=== PATIENT | male | born 1995 | race African-American/Black ===

== ENCOUNTER 2018-06-26 17:03 | Emergency (ER) | payer BC ==
[2018-06-26] MEDS ORDERED: KETAMINE HCL 500 MG/5 ML VIAL ONE (17:53)
[2018-06-26] MEDS ORDERED: NA CHLORIDE 0.9% 1,000 ML ONE (17:53)
--- NOTE | 2018-06-26 18:41 | ER ---
Nurse's Notes [facility] Name: Kolby Cotton Jr Age: 23 yrs Sex: Male : 1995 Arrival Date: 06/26/2018 Time: 17:08 Bed 4 Private MD: Diagnosis: Anterior dislocation of right humerus Presentation: 06/26 17:11 Presenting complaint: Patient states: i dislocated my R shoulder from sleeping on that hj side; denies trauma to the area; [facility], XRAY done, was told pt had R shoulder dislocation and was told to come here for further eval and treatment; pain is 6/10;. Transition of care: patient was not received from another setting of care. Onset of symptoms was June 26, 2018. Risk Assessment: Do you want to hurt yourself or someone else? Patient reports no desire to harm self or others. Initial Sepsis Screen: Does the patient meet any 2 criteria? No. Patient's initial sepsis screen is negative. Does the patient have a suspected source of infection? No. Patient's initial sepsis screen is negative. Care prior to arrival: None. 17:11 Method Of Arrival: Ambulatory 17:11 Acuity: ALIS 3 hj Historical: - Allergies: 17:15 No Known Allergies; - Home Meds: 17:15 Keppra 500 mg Oral tab 1 tab nightly [Active]; hj - PMHx: 17:15 Seizures; hj - PSHx: 17:15 abdominal surgery; hj - Immunization history:: Adult Immunizations up to date. - Social history:: Patient/guardian denies using alcohol, street drugs, The patient lives with family, Smoking status: Patient/guardian denies using tobacco. - Family history:: not pertinent. - Ebola Screening: : Patient denies exposure to infectious person Patient denies travel to an Ebola-affected area in the 21 days before illness onset. Screenin:56 Abuse screen: Denies threats or abuse. Denies injuries from another. Nutritional ss screening: No deficits noted. Tuberculosis screening: Never had TB. Fall Risk None identified. Assessment: 17:17 General: Appears in no apparent distress. comfortable, Behavior is cooperative, ss anxious, Denies fever, feeling ill, fatigue, chills. Pain: Complains of pain in R shoulder/ scapula Pain currently is 6 out of 10 on a pain scale. Quality of pain is described as aching, tender, Pain began 1.5 weeks ago. Pt reports he was sleeping and when he woke up he felt pain in his arm. Is continuous. Neuro: Level of Consciousness is awake, alert, obeys commands, Oriented to person, place, time, situation, Speech is normal, Facial symmetry appears normal, Pupils are PERRLA, Intact. Cardiovascular: Pulses are palpable in right radial artery and left radial artery. Respiratory: Airway is patent Respiratory effort is even, unlabored, Respiratory pattern is regular, symmetrical, Breath sounds are clear bilaterally. GI: Patient currently denies diarrhea, nausea, vomiting. : No signs and/or symptoms were reported regarding the genitourinary system. EENT: Oral mucosa is moist. Throat is clear. Derm: Skin is intact, is healthy with good turgor, Skin is dry, Skin is pink, warm \T\ dry. normal. Musculoskeletal: Circulation, motion, and sensation intact. Range of motion: limited in right shoulder Swelling absent. 17:55 Reassessment: all monitors applied to patient. Pt has signed informed consent. Dr. inés Childs notified. Pt voices anxiety, but has been given verbal reassurance. 19:08 Reassessment: Patient appears in no apparent distress at this time. Patient and/or ss family updated on plan of care and expected duration. Pain level reassessed. Patient is alert, oriented x 3, equal unlabored respirations, skin warm/dry/pink. Reassessment: Pt tolerated procedure well. Is awake and alert at this time with minimal discomfort. Shoulder immobilizer in place. Mother at bedside. Awaiting for radiology report to come through. Neuro: Level of Consciousness is awake, alert, obeys commands, Oriented to person, place, time, situation, Speech is normal. Respiratory: Respiratory effort is even, unlabored. Vital Signs: 17:15 BP 142 / 87; Pulse 93; Resp 18; Temp 98.9(TE); Pulse Ox 96% on R/A; Weight 52.16 kg; hj Height 5 ft. 3 in. (160.02 cm); Pain 6/10; 18:22 BP 141 / 97; Pulse 120; Resp 16; Pulse Ox 100% on 2 lpm NC; ss 18:34 BP 153 / 67; Pulse 93; Resp 16; Pulse Ox 100% on R/A; ss 17:15 Body Mass Index 20.37 (52.16 kg, 160.02 cm) ED Course: 17:08 Patient arrived in ED. mr 17:13 Triage completed. hj 17:16 Arm band placed on left wrist. hj 17:18 Tosin Childs MD is Attending Physician. ma2 17:40 Inserted saline lock: 18 gauge in left antecubital area, using aseptic technique. ds4 17:48 Anna Cai, RN is Primary Nurse. ss 17:56 Patient has correct armband on for positive identification. Placed in gown. Bed in low ss position. Call light in reach. Side rails up X2. nuclear monitoring technician on. Pulse ox on. NIBP on. Warm blanket given. Consent for conscious sedation explained by staff, explained by physician, signed by patient. 17:56 Oxygen administration via nasal cannula \T\ 2L/min. ss 18:37 Shoulder 1 View In Process Unspecified. EDIN 18:39 Kt Haywood MD is Referral Physician. ma2 19:15 No provider procedures requiring assistance completed. IV discontinued, intact, ss bleeding controlled, No redness/swelling at site. Pressure dressing applied. Administered Medications: 18:19 Drug: NS 0.9% 500 ml {Note: given during conscious sedation.} Route: IV; Rate: bolus; ss Site: left antecubital; 18:53 Follow up: IV Status: Completed infusion ss 18:20 Drug: Ketamine 1 mg/kg {Note: 52 mg administered.} Route: IVP; Site: left antecubital; ss 18:51 Follow up: Response: Patient is sedated ss 18:23 Drug: Ketamine 1 mg/kg {Note: 52 mg given .} Route: IVP; Site: left antecubital; ss 18:26 Follow up: Response: No adverse reaction; Patient is sedated ss Outcome: 18:40 Discharge ordered by . ma2 19:15 Discharged to home ambulatory, with family. ss 19:15 Condition: good 19:15 Discharge instructions given to patient, family, Instructed on discharge instructions, follow up and referral plans. medication usage, Demonstrated understanding of instructions, follow-up care, medications, Prescriptions given X 1. 19:16 Patient left the ED. ss Signatures: Dispatcher [facility] Virgie Ladd mr Anna Cai, SHAWNA RN ss Derek Miles ds4 Lamberto Gonzáles RN RN Tosin Childs MD MD ma2 Corrections: (The following items were deleted from the chart) 19:14 19:08 BP 141 / 97; Pulse 120bpm; Resp 16bpm; Pulse Ox 100% 2 lpm Nasal Cannula; [facility]
--- NOTE | 2018-06-26 18:41 | EDPHYS ---
Physician Documentation [facility] Name: Kolby Cotton Jr Age: 23 yrs Sex: Male : 1995 Arrival Date: 06/26/2018 Time: 17:08 Bed 4 Private MD: ED Physician Tosin Childs HPI: 06/26 18:36 This 23 yrs old Black Male presents to ER via Ambulatory with complaints of Shoulder ma2 Injury. 18:36 The patient or guardian complains of decreased range of motion. Onset: The ma2 symptoms/episode began/occurred suddenly, 10 day(s) ago. Associated signs and symptoms: Pertinent negatives: diaphoresis, neck pain, tingling. Severity of symptoms: At their worst the symptoms were moderate, in the emergency department the symptoms are unchanged. The patient has not experienced similar symptoms in the past. send from clinic for ant shoulder dislocation, he has his shoulder dislocated for 10 days . Historical: - Allergies: 17:15 No Known Allergies; hj - Home Meds: 17:15 Keppra 500 mg Oral tab 1 tab nightly [Active]; hj - PMHx: 17:15 Seizures; hj - PSHx: 17:15 abdominal surgery; hj - Immunization history:: Adult Immunizations up to date. - Social history:: Patient/guardian denies using alcohol, street drugs, The patient lives with family, Smoking status: Patient/guardian denies using tobacco. - Family history:: not pertinent. - Ebola Screening: : Patient denies exposure to infectious person Patient denies travel to an Ebola-affected area in the 21 days before illness onset. ROS: 18:36 Constitutional: Negative for fever, chills, and weight loss. ma2 18:36 MS/extremity: Positive for decreased range of motion, pain, Negative for paresthesias, swelling, tenderness, tingling, warmth. 18:36 All other systems are negative. Exam: 18:36 Constitutional: This is a well developed, well nourished patient who is awake, alert, ma2 and in no acute distress. Head/Face: Normocephalic, atraumatic. Chest/axilla: Normal chest wall appearance and motion. Nontender with no deformity. No lesions are appreciated. Cardiovascular: Regular rate and rhythm with a normal S1 and S2. No gallops, murmurs, or rubs. Normal PMI, no JVD. No pulse deficits. Respiratory: Lungs have equal breath sounds bilaterally, clear to auscultation and percussion. No rales, rhonchi or wheezes noted. No increased work of breathing, no retractions or nasal flaring. Abdomen/GI: Soft, non-tender, with normal bowel sounds. No distension or tympany. No guarding or rebound. No evidence of tenderness throughout. Back: No spinal tenderness. No costovertebral tenderness. Full range of motion. Skin: Warm, dry with normal turgor. Normal color with no rashes, no lesions, and no evidence of cellulitis. Neuro: Awake and alert, GCS 15, oriented to person, place, time, and situation. Cranial nerves II-XII grossly intact. Motor strength 5/5 in all extremities. Sensory grossly intact. Cerebellar exam normal. Normal gait. 18:36 Musculoskeletal/extremity: ROM: limited passive range of motion, anterior shoulder dislocation, neurovascular intact . Vital Signs: 17:15 BP 142 / 87; Pulse 93; Resp 18; Temp 98.9(TE); Pulse Ox 96% on R/A; Weight 52.16 kg; hj Height 5 ft. 3 in. (160.02 cm); Pain 6/10; 18:22 BP 141 / 97; Pulse 120; Resp 16; Pulse Ox 100% on 2 lpm NC; ss 18:34 BP 153 / 67; Pulse 93; Resp 16; Pulse Ox 100% on R/A; ss 17:15 Body Mass Index 20.37 (52.16 kg, 160.02 cm) Procedures: 18:36 Reduction: of the right shoulder, using traction, manipulation, Immobilized with sling, ma2 Patient tolerated well. Post reduction film - reveals normal alignment. Moderate sedation: Pre-procedure assessment: ASA physical classification: I - healthy, no underlying organic disease, Airway assessment: able to hyperextend neck, Mallampati classification of tongue size: I - faucial pillars, soft palate, and uvula can be fully visualized, Monitoring during procedure: nuclear monitoring technician, continuous pulse oximetry, Medications employed: Ketamine, Post-procedure assessment: the patient is moderately sedated, Respiratory status: even and unlabored. MDM: 17:18 Patient medically screened. ma2 18:36 Differential diagnosis: Anterior dislocation with fracture, Anterior dislocation ma2 without fracture, Posterior dislocation with fracture, Posterior dislocation without fracture, humeral head fracture, glenoid fracture, tendonitis. Data reviewed: vital signs, nurses notes. Counseling: I had a detailed discussion with the patient and/or guardian regarding: the historical points, exam findings, and any diagnostic results supporting the discharge/admit diagnosis, the presence of at least one elevated blood pressure reading (>120/80) during this emergency department visit, the need for outpatient follow up. Response to treatment: the patient's symptoms have resolved after treatment. 06/26 18:36 Order name: Shoulder 1 View; Complete Time: 19:12 EDMS Administered Medications: 18:19 Drug: NS 0.9% 500 ml {Note: given during conscious sedation.} Route: IV; Rate: bolus; ss Site: left antecubital; 18:53 Follow up: IV Status: Completed infusion 18:20 Drug: Ketamine 1 mg/kg {Note: 52 mg administered.} Route: IVP; Site: left antecubital; 18:51 Follow up: Response: Patient is sedated 18:23 Drug: Ketamine 1 mg/kg {Note: 52 mg given .} Route: IVP; Site: left antecubital; 18:26 Follow up: Response: No adverse reaction; Patient is sedated Disposition: 06/26/18 18:40 Discharged to Home. Impression: Anterior dislocation of right humerus. - Condition is Stable. - Prescriptions for Tylenol- Codeine #3 300-30 mg Oral Tablet - take 2 tablet by ORAL route every 6 hours As needed; 30 tablet. - Medication Reconciliation Form, Thank You Letter, Antibiotic Education, Prescription Opioid Use form. - Follow up: Private Physician; When: Tomorrow; Reason: Continuance of care. Follow up: Kt Haywood MD; When: Tomorrow; Reason: Continuance of care. - Notes: follow up with bone doctor on friday Signatures: Dispatcher [employer] EDAnna Barker RN RN Lamberto Gonzáles RN RN Tosin Childs MD MD ma2 Corrections: (The following items were deleted from the chart) 18:36 17:19 Shoulder Right 2 View+RAD.RAD.BRZ ordered. EDMS EDMS 19:16 18:40 06/26/2018 18:40 Discharged to Home. Impression: Anterior dislocation of right ss humerus. Condition is Stable. Forms are Medication Reconciliation Form, Thank You Letter, Antibiotic Education, Prescription Opioid Use. Follow up: Private Physician; When: Tomorrow; Reason: Continuance of care. Follow up: Kt Haywood; When: Tomorrow; Reason: Continuance of care. ma2
--- NOTE | 2018-06-26 19:07 | RAD REPORT ---
EXAM DESCRIPTION: RAD - Shoulder 1 View - 06/26/2018 6:38 pm CLINICAL HISTORY: Shoulder pain FINDINGS: Frontal view of the right shoulder was obtained. There appears to be an anterior dislocati on present. It is uncertain however this is secondary to positioning or a true dislocation. Axillary and scapular views of the right shoulder recommended for further evaluation No acute fracture is seen
== END 2018-06-26 19:16 | disposition home or self-care (01) ==
LOC: ER 17:03
DX: S43.014A Anterior dislocation of right humerus, initial encounter (principal); X58.XXXA Exposure to other specified factors, initial encounter
CPT/HCPCS: 73020; 96361; 96374; 99285; J7030

== ENCOUNTER 2018-08-10 15:20 | Emergency (ER) | payer BC ==
--- OUTSIDE RECORDS SUMMARY | 2018-08-10 15:22 | XMS REPORT ---
:1995 [facility] Address [address] [place] [id number] Care Team Providers Name Role Phone Unavailable Unavailable Unavailable Problems This patient has no known problems. Allergies, Adverse Reactions, Alerts This patient has no known allergies or adverse reactions. Medications This patient has no known medications.
--- NOTE | 2018-08-10 16:47 | RAD REPORT ---
EXAM DESCRIPTION: RAD - Shoulder Left 2 View - 08/10/2018 4:40 pm CLINICAL HISTORY: Left shoulder pain FINDINGS: No fracture. Anterior dislocation involves humeral head
[2018-08-10] MEDS ORDERED: PROPOFOL 0 MG/0 ML VIAL IV ONE (17:58)
[2018-08-10] MEDS ORDERED: FENTANYL CITR 100 MCG/2 ML ONE (17:58)
[2018-08-10] MEDS ORDERED: PROPOFOL 200 MG/20 ML VIAL IV ONE (17:59)
[2018-08-10] MEDS ORDERED: NA CHLORIDE 0.9% 1,000 ML ONE (18:14)
--- NOTE | 2018-08-10 18:28 | ER ---
Nurse's Notes 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 Transition of care: patient was not received from another setting of care. Onset of symptoms was August 10, 2018. Risk Assessment: Do you want to hurt yourself or someone else? Patient reports no desire to harm self or others. Initial Sepsis Screen: Does the patient meet any 2 criteria? No. Patient's initial sepsis screen is negative. Does the patient have a suspected source of infection? No. Patient's initial sepsis screen is negative. Care prior to arrival: None. 15:29 Method Of Arrival: Ambulatory aj 15:29 Acuity: ALIS 3 aj Triage Assessment: 15:30 General: Appears in no apparent distress. comfortable, Behavior is calm, cooperative, aj appropriate for age. Pain: Complains of pain in anterior aspect of left shoulder. Neuro: Level of Consciousness is awake, alert, obeys commands, Oriented to person, place, time, situation, Appropriate for age. Respiratory: Airway is patent Respiratory effort is even, unlabored, Respiratory pattern is regular, symmetrical. Derm: Skin is intact, is healthy with good turgor, Skin is pink, warm \T\ dry. normal. Musculoskeletal: Reports pain in anterior aspect of left shoulder. Injury Description: Deformity sustained to anterior aspect of left shoulder. Historical: - Allergies: 15:30 No Known Allergies; aj - Home Meds: 15:37 Keppra 500 mg Oral tab 1 tab nightly [Active]; hj - PMHx: 15:37 Seizures; hj - PSHx: 15:37 abdominal surgery; hj - Immunization history:: Adult Immunizations up to date. - Social history:: Smoking status: Patient/guardian denies using tobacco, Patient/guardian denies using alcohol. - Ebola Screening: : Patient negative for fever greater than or equal to 101.5 degrees Fahrenheit, and additional compatible Ebola Virus Disease symptoms Patient denies exposure to infectious person Patient denies travel to an Ebola-affected area in the 21 days before illness onset. Screenin:36 Abuse screen: Denies threats or abuse. Denies injuries from another. Nutritional hj screening: No deficits noted. Tuberculosis screening: No symptoms or risk factors identified. Fall Risk None identified. Assessment: 15:37 General: Appears in no apparent distress. uncomfortable, Behavior is calm, cooperative, hj appropriate for age. Pain: Complains of pain in left arm and anterior aspect of left shoulder. Neuro: Level of Consciousness is awake, alert, obeys commands, Oriented to person, place, time, situation, Appropriate for age. Cardiovascular: Capillary refill < 3 seconds Patient's skin is warm and dry. Respiratory: Airway is patent Respiratory effort is even, unlabored, Respiratory pattern is regular, symmetrical. GI: No signs and/or symptoms were reported involving the gastrointestinal system. : No signs and/or symptoms were reported regarding the genitourinary system. EENT: No signs and/or symptoms were reported regarding the EENT system. Derm: No signs and/or symptoms reported regarding the dermatologic system. Musculoskeletal: Reports pain in left arm and anterior aspect of left shoulder. 16:30 Reassessment: Patient and/or family updated on plan of care and expected duration. Pain hj level reassessed. Patient is alert, oriented x 3, equal unlabored respirations, skin warm/dry/pink. awaiting XRAY result;. 17:30 Reassessment: Patient and/or family updated on plan of care and expected duration. Pain hj level reassessed. Patient is alert, oriented x 3, equal unlabored respirations, skin warm/dry/pink. for closed reduction of L shoulder dislocation;. 18:03 Reassessment: Patient and/or family updated on plan of care and expected duration. Pain hj level reassessed. Patient is alert, oriented x 3, equal unlabored respirations, skin warm/dry/pink. with provider and crop and soil technician in room for closed reduction procedure; pt prep and equipment in place; Time off done;. 18:03 Reassessment: documentation in paper;attached to chart;. hj Vital Signs: 15:30 BP 143 / 75; Pulse 76; Resp 16; Temp 97.8; Pulse Ox 98% on R/A; Weight 52.16 kg; Height aj 5 ft. 3 in. (160.02 cm); 18:57 BP 129 / 81; Pulse 75; Resp 18; Pulse Ox 100% on R/A; hj 15:30 Body Mass Index 20.37 (52.16 kg, 160.02 cm) ED Course: 15:22 Patient arrived in ED. tw3 15:30 Triage completed. aj 15:30 Arm band placed on right wrist. aj 15:32 Kyler Chao MD is Attending Physician. ps1 15:36 Lamberto Gonzáles RN is Primary Nurse. hj 15:36 Patient has correct armband on for positive identification. Placed in gown. Bed in low hj position. Call light in reach. Side rails up X 1. 16:43 Shoulder Left (2 View) XRAY In Process Unspecified. EDMS 17:45 Inserted saline lock: 22 gauge in right antecubital area, using aseptic technique. IV hj discontinued, intact, bleeding controlled, No redness/swelling at site. Pressure dressing applied. 18:03 Assist provider with reduction of left shoulder using manipulation, Set up for hj procedure. Performed by Lamberto Gonzáles RN Immobilized with shoulder immobilizer Patient tolerated well. 18:21 Shoulder 1 View In Process Unspecified. EDMS 18:26 Fermin Nair MD is Referral Physician. ps1 Administered Medications: 18:03 Drug: Propofol 70 mg Route: IVP; Site: right antecubital; hj 18:29 Follow up: Response: No adverse reaction hj 18:05 Drug: fentaNYL (PF) 100 mcg Route: IVP; Site: right antecubital; hj 18:29 Follow up: Response: No adverse reaction; Pain is decreased hj Outcome: 18:27 Discharge ordered by . ps1 18:56 Discharged to home ambulatory, with family. hj 18:56 Condition: stable 18:56 Discharge instructions given to patient, family, Instructed on discharge instructions, follow up and referral plans. Demonstrated understanding of instructions, follow-up care, L shoulder immobilizer care; 18:57 Patient left the ED. hj Signatures: Dispatcher [employer] EDMS Meg Cooper RN RN aj Joaquin, Henry, SHAWNA Posey, Tia tw3 Kyler Chao MD MD ps1
--- NOTE | 2018-08-10 18:29 | EDPHYS ---
Physician Documentation [facility] Name: Kolby Cotton Jr Age: 23 yrs Sex: Male : 1995 Arrival Date: 08/10/2018 Time: 15:22 Bed 15 Private MD: ED Physician Kyler Chao HPI: 08/10 18:21 This 23 yrs old Black Male presents to ER via Ambulatory with complaints of Shoulder ps1 Injury. 18:21 patient has a history of multiple dislocations of shoulder.Today has left anterior ps1 dislocation with closing a door at home. Atraumatic. Pain rated as moderate. Drop off of left shoulder. Guarding. . Historical: - Allergies: 15:30 No Known Allergies; aj - Home Meds: 15:37 Keppra 500 mg Oral tab 1 tab nightly [Active]; hj - PMHx: 15:37 Seizures; hj - PSHx: 15:37 abdominal surgery; hj - Immunization history:: Adult Immunizations up to date. - Social history:: Smoking status: Patient/guardian denies using tobacco, Patient/guardian denies using alcohol. - Ebola Screening: : Patient negative for fever greater than or equal to 101.5 degrees Fahrenheit, and additional compatible Ebola Virus Disease symptoms Patient denies exposure to infectious person Patient denies travel to an Ebola-affected area in the 21 days before illness onset. ROS: 18:21 Constitutional: Negative for fever, chills, and weight loss, Eyes: Negative for injury, ps1 pain, redness, and discharge, Cardiovascular: Negative for chest pain, palpitations, and edema, Respiratory: Negative for shortness of breath, cough, wheezing, and pleuritic chest pain, Abdomen/GI: Negative for abdominal pain, nausea, vomiting, diarrhea, and constipation, Skin: Negative for injury, rash, and discoloration, Neuro: Negative for headache, weakness, numbness, tingling, and seizure. 18:21 MS/extremity: Positive for decreased range of motion, deformity, of the anterior aspect of left shoulder. Exam: 18:21 Constitutional: This is a well developed, well nourished patient who is awake, alert, ps1 and in no acute distress. Head/Face: Normocephalic, atraumatic. Eyes: Pupils equal round and reactive to light, extra-ocular motions intact. Lids and lashes normal. Conjunctiva and sclera are non-icteric and not injected. Chest/axilla: Normal chest wall appearance and motion. Nontender with no deformity. No lesions are appreciated. Cardiovascular: Regular rate and rhythm. No gallops, murmurs, or rubs. Normal PMI, no JVD. No pulse deficits. Respiratory: Lungs have equal breath sounds bilaterally, clear to auscultation and percussion. No rales, rhonchi or wheezes noted. No increased work of breathing, no retractions or nasal flaring. Abdomen/GI: Soft, non-tender, with normal bowel sounds. No distension or tympany. No guarding or rebound. No evidence of tenderness throughout. Neuro: Awake and alert, GCS 15, oriented to person, place, time, and situation. Cranial nerves II-XII grossly intact. Sensory grossly intact. Psych: Awake, alert, with orientation to person, place and time. Behavior, mood, and affect are within normal limits. 18:21 Musculoskeletal/extremity: Extremities: grossly normal except: noted in the anterior aspect of left shoulder: decreased ROM, dislocation. Vital Signs: 15:30 BP 143 / 75; Pulse 76; Resp 16; Temp 97.8; Pulse Ox 98% on R/A; Weight 52.16 kg; Height aj 5 ft. 3 in. (160.02 cm); 18:57 BP 129 / 81; Pulse 75; Resp 18; Pulse Ox 100% on R/A; hj 15:30 Body Mass Index 20.37 (52.16 kg, 160.02 cm) aj Procedures: 18:21 Reduction: of the anterior aspect of left shoulder, using traction, manipulation, ps1 supination, Immobilized with shoulder immobilizer. Patient tolerated well. Post reduction film - reveals normal alignment. Moderate sedation: Pre-procedure assessment: ASA physical classification: I - healthy, no underlying organic disease, Airway assessment: able to hyperextend neck, able to maintain airway, can open mouth without difficulty, Mallampati classification of tongue size: III - uvula can be visualized, but faucial pillars and soft palate are not appreciated. MDM: 16:18 Patient medically screened. ps1 18:21 Data reviewed: vital signs, nurses notes, and as a result, I will discharge patient. ps1 Counseling: I had a detailed discussion with the patient and/or guardian regarding: the historical points, exam findings, and any diagnostic results supporting the discharge/admit diagnosis, radiology results, the need for outpatient follow up, for definitive care, a orthopedic surgeon, to return to the emergency department if symptoms worsen or persist or if there are any questions or concerns that arise at home. 08/10 16:18 Order name: Shoulder Left (2 View) XRAY; Complete Time: 17:18 ps1 08/10 18:17 Order name: Shoulder 1 View; Complete Time: 18:56 EDMS Administered Medications: 18:03 Drug: Propofol 70 mg Route: IVP; Site: right antecubital; hj 18:29 Follow up: Response: No adverse reaction hj 18:05 Drug: fentaNYL (PF) 100 mcg Route: IVP; Site: right antecubital; hj 18:29 Follow up: Response: No adverse reaction; Pain is decreased Disposition: 08/10/18 18:27 Discharged to Home. Impression: Anterior dislocation of left humerus. - Condition is Stable. - Discharge Instructions: Shoulder Dislocation. - Medication Reconciliation Form, Thank You Letter, Antibiotic Education, Prescription Opioid Use form. - Follow up: Fermin Nair MD; When: 1 week; Reason: Worsening of condition, Further diagnostic work-up, Continuance of care. Follow up: Emergency Department; When: As needed; Reason: Worsening of condition. - Problem is an acute exacerbation. - Symptoms are unchanged. Signatures: Dispatcher [employer] [facility] Meg Cooper RN RN aj Joaquin, Henry, RN RN hj Singer, Phillip, MD MD ps1 Corrections: (The following items were deleted from the chart) 18:17 18:10 Shoulder Left 2 View+RAD.RAD.BRZ ordered. [facility] 18:57 18:27 08/10/2018 18:27 Discharged to Home. Impression: Anterior dislocation of left hj humerus. Condition is Stable. Forms are Medication Reconciliation Form, Thank You Letter, Antibiotic Education, Prescription Opioid Use. Follow up: Fermin Nair; When: 1 week; Reason: Worsening of condition, Further diagnostic work-up, Continuance of care. Follow up: Emergency Department; When: As needed; Reason: Worsening of condition. Problem is an acute exacerbation. Symptoms are unchanged. ps1
--- NOTE | 2018-08-10 18:35 | RAD REPORT ---
EXAM DESCRIPTION: RAD - Shoulder 1 View - 08/10/2018 6:19 pm CLINICAL HISTORY: Right shoulder dislocation FINDINGS: Frontal view of the right shoulder was obtained. Previously described dislocation appears reduced
== END 2018-08-10 18:57 | disposition home or self-care (01) ==
LOC: ER 15:20
DX: S43.015A Anterior dislocation of left humerus, initial encounter (principal); X58.XXXA Exposure to other specified factors, initial encounter; R56.9 Unspecified convulsions
CPT/HCPCS: 73020; 96374; 96375; 99285; J2704; J3010; J7030

== ENCOUNTER 2019-01-19 12:16 | Emergency (ER) | payer BC ==
--- OUTSIDE RECORDS SUMMARY | 2019-01-19 12:18 | XMS REPORT ---
:1995 [facility] Address [address] [place] [address] Care Team Providers Name Role Phone Unavailable Unavailable Unavailable Problems This patient has no known problems. Allergies, Adverse Reactions, Alerts This patient has no known allergies or adverse reactions. Medications This patient has no known medications.
--- OUTSIDE RECORDS SUMMARY | 2019-01-19 12:18 | XMS REPORT | Summary of Care ---
:1995 Author Organization [facility] Address [address] [place] [address] Care Team Providers Name Role Phone Heber Curran Primary Care Provider Encounter Details Date Type Department Care Team Description 09/02/2018 Orders Only [facility] Doctor Unassigned, No [address] [facility] [place] [address] [address] [place] [address] Allergies No Known Allergiesdocumented as of this encounter (statuses as of 10/11/2018) Medications Medication Sig Dispensed Refills Start Date End Date Status levETIRAcetam (KEPPRA) Take 500 mg by 0 Active 500 mg tablet mouth daily. documented as of this encounter (statuses as of 10/11/2018) Active Problems No known active problemsdocumented as of this encounter (statuses as of 2018) Social History Tobacco Use Types Packs/Day Years Used Date Never Assessed Sex Assigned at Date Recorded Not on file Job Start Date Occupation Industry Not on file Not on file Not on file Travel History Travel Start Travel End No recent travel history available. documented as of this encounter Last Filed Vital Signs Not on filedocumented in this encounter Plan of Treatment Date Type Specialty Care Team Description 12/14/2018 Office Visit Neurology Gautam Cho MD [address] [place] [id number] Health Maintenance Due Date Last Done Comments MENINGOCOCCAL B VACCINES (1 of 2 - 05/24/2005 Risk Bexsero 2-dose series) VARICELLA VACCINES (1 of 2 - 13+ 05/24/2008 2-dose series) DTaP,Tdap,and Td Vaccines (1 - 05/24/2014 Tdap) INFLUENZA VACCINE 11/01/2018 HPV VACCINES Aged Out No longer eligible based on patient's age to complete this topic PNEUMOCOCCAL 0-64 YEARS COMBINED Aged Out No longer eligible based on SERIES patient's age to complete this topic documented as of this encounter Procedures Procedure Name Priority Date/Time Associated Diagnosis Comments REFERRAL- Routine 09/02/2018 12:01 AM CDT REQUEST/RESPONSE documented in this encounter Results Not on filedocumented in this encounter Insurance Payer Benefit Plan / Subscriber ID Effective Dates Phone Address Type Group [id number] 2013-Present PPO/POS [facility] [employer] EMPLOYEE PLAN documented as of this encounter
[2019-01-19] MEDS ORDERED: PROPOFOL 200 MG/20 ML VIAL IV ONE (12:52)
[2019-01-19] MEDS ORDERED: NA CHLORIDE 0.9% 250 ML ONE (12:52)
--- NOTE | 2019-01-19 13:39 | EDPHYS ---
Physician Documentation [facility] Name: Kolby Cotton Jr Age: 23 yrs Sex: Male : 1995 Arrival Date: 01/19/2019 Time: 12:19 Bed 4 Private MD: ED Physician Hang Britton HPI: 01/19 12:49 This 23 yrs old Black Male presents to ER via Ambulatory with complaints of Shoulder rn Pain. 12:49 The patient or guardian complains of decreased range of motion, pain. left shoulder. rn Onset: The symptoms/episode began/occurred just prior to arrival. Modifying factors: the symptoms are alleviated by remaining still, The symptoms are aggravated by movement, rotation of arm. Severity of symptoms: At their worst the symptoms were moderate, in the emergency department the symptoms are unchanged. The patient has experienced similar episodes in the past. Reports left shoulder pain, thinks dislocated it again, has had dislocations of both shoulders, no direct trauma, at work, seated. No weakness or numbness. . Historical: - Allergies: 12:26 No Known Allergies; hb - Home Meds: 12:26 Keppra 500 mg Oral tab 1 tab nightly [Active]; hb - PMHx: 12:26 Seizures; hb - PSHx: 12:26 abdominal surgery; hb - Immunization history:: Adult Immunizations up to date. - Social history:: Smoking status: Patient/guardian denies using tobacco. - Ebola Screening: : No symptoms or risks identified at this time. - Family history:: not pertinent. - Hospitalizations: : No recent hospitalization is reported. 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 Neck: Trachea midline, no thyromegaly or masses palpated, and no cervical lymphadenopathy. Supple, full range of motion without nuchal rigidity, or vertebral point tenderness. No Meningismus. MS/ Extremity: Pulses equal, no cyanosis. Neurovascular intact. Left arm held passive flexion. Prominence anterior and medial to left shoulder, empty glenoid Vital Signs: 12:26 BP 131 / 84; Pulse 93; Resp 16; Temp 97.7; Pulse Ox 97% on R/A; Weight 52.16 kg; Height hb 5 ft. 3 in. (160.02 cm); Pain 8/10; 13:24 BP 109 / 81; Pulse 56; Resp 14 S; Pulse Ox 100% on R/A; jl7 14:04 BP 110 / 52; Pulse 58; Resp 17; Pulse Ox 100% on R/A; tw2 12:26 Body Mass Index 20.37 (52.16 kg, 160.02 cm) hb Procedures: 13:06 Splinting: Splint applied to left shoulder using shoulder immobilizer. applied by rn myself. tech. post reduction film - reveals normal alignment, Examined by me, post splint application: neurovascular intact, 2+ distal pulses palpable, brisk capillary refill noted, Patient tolerated well. Reduction: of the left shoulder, using traction, manipulation, Immobilized with shoulder immobilizer. Patient tolerated well. Post reduction film - reveals normal alignment. 13:07 Moderate sedation: Pre-procedure assessment: the patient has been NPO 5 hour(s) prior rn to arrival, Monitoring during procedure: equipment monitor phototypesetting, continuous pulse oximetry, nurse at bedside at all times, Medications employed: propofol, Post-procedure assessment: the patient is mildly sedated, Respiratory status: even and unlabored, a reversal agent was not used. MDM: 12:28 Patient medically screened. rn 13:37 Differential diagnosis: Anterior dislocation without fracture. Data reviewed: vital rn signs, nurses notes, radiologic studies, plain films, and as a result, I will discharge patient. Counseling: I had a detailed discussion with the patient and/or guardian regarding: the historical points, exam findings, and any diagnostic results supporting the discharge/admit diagnosis, radiology results, the need for outpatient follow up, to return to the emergency department if symptoms worsen or persist or if there are any questions or concerns that arise at home. Response to treatment: the patient's symptoms have markedly improved after treatment, the patient's condition has returned to base line, and as a result, I will discharge patient. Special discussion: I discussed with the patient/guardian in detail that at this point there is no indication for admission to the hospital. It is understood, however, that if the symptoms persist or worsen the patient needs to return immediately for re-evaluation. Based on the history and exam findings, there is no indication for further emergent testing or inpatient evaluation. I discussed with the patient/guardian the need to see the orthopedic surgeon for further evaluation of the symptoms. 01/19 12:37 Order name: XRAY Shoulder (1 View); Complete Time: 13:59 rn 01/19 12:36 Order name: Moderate Sedation; Complete Time: 12:47 rn 01/19 12:37 Order name: Shoulder Immobilizer; Complete Time: 13:21 rn Administered Medications: No medications were administered Disposition: 01/19/19 13:38 Discharged to Home. Impression: Recurrent dislocation, left shoulder. - Condition is Stable. - Discharge Instructions: Shoulder Dislocation. - Work release form, Family Work Release, Medication Reconciliation Form, Thank You Letter, Antibiotic Education, Prescription Opioid Use form. - Follow up: Matthew Bello MD; When: As needed; Reason: Recheck today's complaints, Re-evaluation by your physician. - Problem is new. - Symptoms have improved. Signatures: Dispatcher [employer] EDMS Hang Britton MD MD rn Baxter, Heather, RN RN Laurie Puga RN RN tw2 Corrections: (The following items were deleted from the chart) 14:05 13:38 01/19/2019 13:38 Discharged to Home. Impression: Recurrent dislocation, left tw2 shoulder. Condition is Stable. Forms are Medication Reconciliation Form, Thank You Letter, Antibiotic Education, Prescription Opioid Use. Follow up: Dr. Matthew Bello; When: As needed; Reason: Recheck today's complaints, Re-evaluation by your physician. Problem is new. Symptoms have improved. rn
--- NOTE | 2019-01-19 13:39 | ER ---
Nurse's Notes [facility] Name: Kolby Cotton Jr Age: 23 yrs Sex: Male : 1995 Arrival Date: 01/19/2019 Time: 12:19 Bed 4 Private MD: Diagnosis: Recurrent dislocation, left shoulder Presentation: 01/19 12:25 Presenting complaint: Left shoulder dislocated while sitting in chair at work. Pt hb reports this has happened 3-4 times in the last year. Transition of care: patient was not received from another setting of care. Onset of symptoms was January 19, 2019. Risk Assessment: Do you want to hurt yourself or someone else? Patient reports no desire to harm self or others. Initial Sepsis Screen: Does the patient meet any 2 criteria? No. Patient's initial sepsis screen is negative. Does the patient have a suspected source of infection? No. Patient's initial sepsis screen is negative. Care prior to arrival: None. 12:25 Method Of Arrival: Ambulatory hb 12:25 Acuity: ALIS 2 hb Historical: - Allergies: 12:26 No Known Allergies; hb - Home Meds: 12:26 Keppra 500 mg Oral tab 1 tab nightly [Active]; hb - PMHx: 12:26 Seizures; hb - PSHx: 12:26 abdominal surgery; hb - Immunization history:: Adult Immunizations up to date. - Social history:: Smoking status: Patient/guardian denies using tobacco. - Ebola Screening: : No symptoms or risks identified at this time. - Family history:: not pertinent. - Hospitalizations: : No recent hospitalization is reported. Screenin:17 Abuse screen: Denies threats or abuse. Denies injuries from another. Nutritional jl7 screening: No deficits noted. Tuberculosis screening: No symptoms or risk factors identified. Fall Risk IV access (20 points). Assessment: 12:30 General: Appears in no apparent distress. uncomfortable, Behavior is calm, cooperative, jl7 appropriate for age. Pain: Complains of pain in left shoulder Pain currently is 8 out of 10 on a pain scale. Neuro: Level of Consciousness is awake, alert, obeys commands, Oriented to person, place, time, situation. Cardiovascular: Patient's skin is warm and dry. Respiratory: Airway is patent Respiratory effort is even, unlabored, Respiratory pattern is regular, symmetrical. Derm: Skin is pink, warm \T\ dry. Musculoskeletal: Range of motion: limited in left shoulder. 13:29 Reassessment: Patient appears in no apparent distress at this time. Patient and/or jl7 family updated on plan of care and expected duration. Pain level reassessed. Patient is alert, oriented x 3, equal unlabored respirations, skin warm/dry/pink. Patient states feeling better. Patient states symptoms have improved. 14:04 Reassessment: Patient appears in no apparent distress at this time. Patient and/or tw2 family updated on plan of care and expected duration. Pain level reassessed. Patient is alert, oriented x 3, equal unlabored respirations, skin warm/dry/pink. Vital Signs: 12:26 BP 131 / 84; Pulse 93; Resp 16; Temp 97.7; Pulse Ox 97% on R/A; Weight 52.16 kg; Height hb 5 ft. 3 in. (160.02 cm); Pain 8/10; 13:24 BP 109 / 81; Pulse 56; Resp 14 S; Pulse Ox 100% on R/A; jl7 14:04 BP 110 / 52; Pulse 58; Resp 17; Pulse Ox 100% on R/A; tw2 12:26 Body Mass Index 20.37 (52.16 kg, 160.02 cm) hb ED Course: 12:19 Patient arrived in ED. rg4 12:26 Triage completed. hb 12:26 Arm band placed on. hb 12:28 Hang Britton MD is Attending Physician. rn 12:28 Peter Euceda RN is Primary Nurse. jl7 12:30 Patient has correct armband on for positive identification. Bed in low position. Call jl7 light in reach. Side rails up X 1. neurological surgeon on. Pulse ox on. NIBP on. 12:30 Inserted saline lock: 22 gauge in right antecubital area, using aseptic technique. jl7 13:00 Consent for conscious sedation explained by staff, explained by physician, signed by jl7 parent. 13:00 Assist provider with reduction of left shoulder using manipulation, Set up for jl7 procedure. Performed by Hang Britton MD Immobilized with shoulder immobilizer Patient tolerated well. 13:23 XRAY Shoulder (1 View) In Process Unspecified. EDMS 13:37 aMtthew Bello MD is Referral Physician. rn 14:05 IV discontinued, intact, bleeding controlled, No redness/swelling at site. Pressure tw2 dressing applied. Administered Medications: No medications were administered Outcome: 13:38 Discharge ordered by MD. rn 14:04 Discharged to home ambulatory, with family. tw2 14:04 Condition: stable 14:04 Discharge instructions given to patient, family, Instructed on discharge instructions, follow up and referral plans. Demonstrated understanding of instructions, follow-up care. 14:05 Patient left the ED. tw2 Signatures: Dispatcher [employer] EDMS Hang Britton MD MD rn Baxter, Heather RN RN Laurie Akers RN RN tw2 Haylee Craft rg4 Peter Euceda RN RN jl7
--- NOTE | 2019-01-19 13:44 | RAD REPORT ---
EXAM DESCRIPTION: RAD - Shoulder 1 View - 01/19/2019 1:22 pm CLINICAL HISTORY: post reduction Pain COMPARISON: Shoulder 1 View dated 08/10/2018; Shoulder Left 2 View dated 08/10/2018 FINDINGS: The humeral head is adequately located within the glenoid. Large Hill-Sachs lesion is seen .
[2019-01-19 14:14] VITALS: TEMP 97.7
[2019-01-19 14:18] VITALS: O2SAT 100
[2019-01-19 14:19] VITALS: BP 110/52
== END 2019-01-19 14:05 | disposition home or self-care (01) ==
LOC: ER 12:16
PROC: 0RSKXZZ Reposition Left Shoulder Joint, External Approach (ICD-10-PCS; principal; 2019-01-19)
DX: M24.412 Recurrent dislocation, left shoulder (principal)
CPT/HCPCS: 73020; 99284; 23655; J2704; J7030

== ENCOUNTER 2019-06-11 21:31 | Emergency (ER) | payer BC ==
--- OUTSIDE RECORDS SUMMARY | 2019-06-11 21:33 | XMS REPORT ---
:1995 Author Organization [facility] t Address [address] [place] [id number] Care Team Providers Name Role Phone Unavailable Unavailable Unavailable Problems This patient has no known problems. Allergies, Adverse Reactions, Alerts This patient has no known allergies or adverse reactions. Medications This patient has no known medications.
[2019-06-11] MEDS ORDERED: FENTANYL CITR 100 MCG/2 ML ONE (23:20)
[2019-06-11] MEDS ORDERED: DIAZEPAM 10 MG/2 ML INJ SYRINGE ONE (23:20)
[2019-06-11] MEDS ORDERED: ONDANSETRON 4 MG/2 ML VIAL ONE (23:21)
--- NOTE | 2019-06-12 00:20 | ER ---
Nurse's Notes [facility] Name: Kolby Cotton Jr Age: 24 yrs Sex: Male : 1995 Arrival Date: 06/11/2019 Time: 21:38 Bed 17 Private MD: Diagnosis: Other dislocation of left shoulder joint Presentation: 06/10 21:50 Chief complaint: Patient states: he was playing basketball and dislocated his left bb shoulder approx 2 hours ago. Coronavirus screen: Proceed with normal triage. Ebola Screen: No symptoms or risks identified at this time. Initial Sepsis Screen: Does the patient meet any 2 criteria? No. Patient's initial sepsis screen is negative. Does the patient have a suspected source of infection? No. Patient's initial sepsis screen is negative. Risk Assessment: Do you want to hurt yourself or someone else? Patient reports no desire to harm self or others. Onset of symptoms was June 11, 2019. 21:50 Method Of Arrival: Ambulatory bb 21:50 Acuity: ALIS 3 bb Historical: - Allergies: 23:09 No Known Allergies; bb - Home Meds: 23:09 Keppra 500 mg Oral tab 1 tab nightly [Active]; bb - PMHx: 23:09 Seizures; bb - PSHx: 23:09 bilateral shoulder surgery; congenital surgery for abdominal problem; bb - Immunization history:: Adult Immunizations up to date. - Social history:: Smoking status: Patient denies any tobacco usage or history of. Patient uses alcohol, occasionally. Patient/guardian denies using street drugs. Screenin:15 Abuse screen: Denies threats or abuse. Nutritional screening: No deficits noted. jb4 Tuberculosis screening: No symptoms or risk factors identified. Fall Risk None identified. Assessment: 22:00 General: Appears in no apparent distress. comfortable, Behavior is calm, cooperative, jb4 appropriate for age. Pain: Complains of pain in left shoulder Pain does not radiate. Pain currently is 8 out of 10 on a pain scale. Neuro: Level of Consciousness is awake, alert, obeys commands, Oriented to person, place, time, situation. Cardiovascular: Patient's skin is warm and dry. Respiratory: Airway is patent Respiratory effort is even, unlabored, Respiratory pattern is regular, symmetrical. GI: No signs and/or symptoms were reported involving the gastrointestinal system. : No signs and/or symptoms were reported regarding the genitourinary system. EENT: No signs and/or symptoms were reported regarding the EENT system. Derm: Skin is intact, Skin is pink, warm \T\ dry. Musculoskeletal: Circulation, motion, and sensation intact. Range of motion: limited in left shoulder. 23:00 Reassessment: Patient appears in no apparent distress at this time. Patient and/or jb4 family updated on plan of care and expected duration. Pain level reassessed. Patient is alert, oriented x 3, equal unlabored respirations, skin warm/dry/pink. 06/11 00:00 Reassessment: Patient appears in no apparent distress at this time. Patient and/or jb4 family updated on plan of care and expected duration. Pain level reassessed. Patient is alert, oriented x 3, equal unlabored respirations, skin warm/dry/pink. Provider relocated left shoulder. Vital Signs: 06/10 21:50 Weight 59.87 kg (R); Height 5 ft. 3 in. (160.02 cm) (R); Pain 8/10; bb 22:14 BP 138 / 83; Pulse 93; Resp 18; Temp 99.4(TE); Pulse Ox 100% on R/A; oe 23:15 BP 125 / 81; Pulse 96; Resp 16; Pulse Ox 98% on R/A; jb4 06/11 00:15 BP 112 / 75; Pulse 76; Resp 16; Pulse Ox 98% on R/A; jb4 06/10 21:50 Body Mass Index 23.38 (59.87 kg, 160.02 cm) bb ED Course: 06/10 21:38 Patient arrived in ED. cl3 21:40 Gato Sanchez PA is PHCP. jmm 21:40 Pradeep Maddox MD is Attending Physician. jmm 21:50 Arm band placed on Patient placed in an exam room, on a stretcher, on pulse oximetry. bb 22:15 Patient has correct armband on for positive identification. Bed in low position. Call jb4 light in reach. Side rails up X 1. Pulse ox on. NIBP on. 23:05 Phillip Perdue, SHAWNA is Primary Nurse. jb4 23:08 Triage completed. bb 23:12 Inserted saline lock: 20 gauge in right antecubital area, using aseptic technique. oe 23:25 Shoulder Left (2 View) XRAY In Process Unspecified. EDMS 06/11 00:00 Assist provider with reduction of left shoulder using manipulation, Set up for jb4 procedure. Performed by Gato HUNTER Patient tolerated well. 00:19 Matthew Bello MD is Referral Physician. [facility] 00:30 IV discontinued, intact, bleeding controlled, No redness/swelling at site. Pressure jb4 dressing applied. 00:39 Shoulder Left (2 View) XRAY In Process Unspecified. EDMS Administered Medications: 06/10 23:26 Drug: Zofran (Ondansetron) 4 mg Route: IVP; Site: right antecubital; jb4 06/11 00:00 Follow up: Response: No adverse reaction [facility] 06/10 23:30 Drug: Valium 5 mg Route: IVP; Site: right antecubital; jb4 06/11 00:00 Follow up: Response: No adverse reaction; Pain is decreased [facility] 06/10 23:31 Drug: fentaNYL (PF) 25 mcg {Note: Rass score 0.} Route: IVP; Site: right antecubital; jb4 06/11 00:00 Follow up: Response: No adverse reaction; Pain is decreased; RASS: Alert and Calm (0) [facility] Outcome: 00:19 Discharge ordered by . [facility] 00:30 Discharged to home ambulatory. [facility] 00:30 Condition: stable 00:30 Discharge instructions given to patient, Instructed on discharge instructions, follow up and referral plans. Demonstrated understanding of instructions, follow-up care. 00:45 Patient left the ED. [facility] Signatures: Dispatcher [employer] EDDE Gato Sanchez PA PA Clarisa Bryant, RN RN Phillip Ivory, SHAWNA RN jb Leonardo Campbell Charde cl3
--- NOTE | 2019-06-12 00:20 | EDPHYS ---
Physician Documentation [facility] Name: Kolby Cotton Jr Age: 24 yrs Sex: Male : 1995 Arrival Date: 06/11/2019 Time: 21:38 Bed 17 Private MD: ED Physician Pradeep Maddox HPI: 06/10 23:09 This 24 yrs old Black Male presents to ER via Ambulatory with complaints of Shoulder jmm Injury. 23:09 The patient or guardian complains of an injury. left shoulder. Onset: The jmm symptoms/episode began/occurred acutely, 2 hour(s) ago. Modifying factors: the symptoms are alleviated by remaining still. Associated signs and symptoms: The patient has no apparent associated signs or symptoms. This is a 24 year old male with a history of epilepsy that presents to the ED with left sided shoulder pain. Patient states his shoulder dislocated while playing basketball. Patient has had similar episodes in the past. Patient denies other injury. . Historical: - Allergies: 23:09 No Known Allergies; bb - Home Meds: 23:09 Keppra 500 mg Oral tab 1 tab nightly [Active]; bb - PMHx: 23:09 Seizures; bb - PSHx: 23:09 bilateral shoulder surgery; congenital surgery for abdominal problem; bb - Immunization history:: Adult Immunizations up to date. - Social history:: Smoking status: Patient denies any tobacco usage or history of. Patient uses alcohol, occasionally. Patient/guardian denies using street drugs. ROS: 23:09 Constitutional: Negative for fever, chills, and weight loss, Cardiovascular: Negative jmm for chest pain, palpitations, and edema, Respiratory: Negative for shortness of breath, cough, wheezing, and pleuritic chest pain. 23:09 MS/extremity: Positive for injury or acute deformity, pain. 23:09 All other systems are negative. Exam: 23:09 Constitutional: This is a well developed, well nourished patient who is awake, alert, jmm and in no acute distress. Head/Face: atraumatic. Eyes: EOMI, no conjunctival erythema appreciated ENT: Moist Mucus Membranes Neck: Trachea midline, Supple Chest/axilla: Normal chest wall appearance and motion. Cardiovascular: Regular rate and rhythm. No edema appreciated Respiratory: Normal respirations, no respiratory distress appreciated Abdomen/GI: Non distended, soft Back: Normal ROM Skin: General appearance color normal 23:09 Neuro: Awake and alert, normal gait Psych: Behavior is normal, Mood is normal, Patient is cooperative and pleasant 23:09 Musculoskeletal/extremity: ROM: left shoulder held in adduction and internal rotation. Vital Signs: 21:50 Weight 59.87 kg (R); Height 5 ft. 3 in. (160.02 cm) (R); Pain 8/10; bb 22:14 BP 138 / 83; Pulse 93; Resp 18; Temp 99.4(TE); Pulse Ox 100% on R/A; oe 23:15 BP 125 / 81; Pulse 96; Resp 16; Pulse Ox 98% on R/A; jb4 06/11 00:15 BP 112 / 75; Pulse 76; Resp 16; Pulse Ox 98% on R/A; jb4 06/10 21:50 Body Mass Index 23.38 (59.87 kg, 160.02 cm) bb Procedures: 06/10 23:45 Reduction: of the left shoulder, using manipulation, Immobilized with sling, Patient booker tolerated well. Post reduction film - reveals normal alignment. MDM: 21:52 Patient medically screened. [facility] 06/11 00:18 Data reviewed: vital signs, nurses notes, radiologic studies, plain films. Counseling: booker I had a detailed discussion with the patient and/or guardian regarding: the historical points, exam findings, and any diagnostic results supporting the discharge/admit diagnosis, radiology results, the need for outpatient follow up, to return to the emergency department if symptoms worsen or persist or if there are any questions or concerns that arise at home. ED course: Patient is advised to follow up with ortho for reevaluation. Patient is otherwise given strict return precautions. Patient understood and agrees with the plan of care. . 06/10 22:59 Order name: Shoulder Left (2 View) XRAY [facility] 06/10 23:43 Order name: Shoulder Left (2 View) XRAY [facility] 06/10 23:42 Order name: Sling; Complete Time: 00:14 booker Administered Medications: 06/10 23:26 Drug: Zofran (Ondansetron) 4 mg Route: IVP; Site: right antecubital; [facility] 06/11 00:00 Follow up: Response: No adverse reaction [facility] 06/10 23:30 Drug: Valium 5 mg Route: IVP; Site: right antecubital; 4 06/11 00:00 Follow up: Response: No adverse reaction; Pain is decreased [facility] 06/10 23:31 Drug: fentaNYL (PF) 25 mcg {Note: Rass score 0.} Route: IVP; Site: right antecubital; jb4 06/11 00:00 Follow up: Response: No adverse reaction; Pain is decreased; RASS: Alert and Calm (0) [facility] Disposition: 06/12/19 00:19 Discharged to Home. Impression: Other dislocation of left shoulder joint. - Condition is Stable. - Discharge Instructions: Shoulder Dislocation. - Medication Reconciliation Form, Thank You Letter, Antibiotic Education, Prescription Opioid Use form. - Follow up: Matthew Bello MD; When: 2 - 3 days; Reason: Recheck today's complaints, Continuance of care, Re-evaluation by your physician. Addendum: 06/14/2019 07:41 Co-signature as Attending Physician, Pradeep Maddox MD I agree with the assessment and c leung plan of care. Signatures: Dispatcher [employer] EDMS Pradeep Maddox MD MD cha Mickail, Joel, PA PA [facility] Clarisa Luke, SHAWNA RN Phillip Ivory RN RN jb4 Corrections: (The following items were deleted from the chart) 06/11 00:45 00:19 06/12/2019 00:19 Discharged to Home. Impression: Other dislocation of left jb4 shoulder joint. Condition is Stable. Forms are Medication Reconciliation Form, Thank You Letter, Antibiotic Education, Prescription Opioid Use. Follow up: Dr. Matthew Bello; When: 2 - 3 days; Reason: Recheck today's complaints, Continuance of care, Re-evaluation by your physician. booker
[2019-06-12 01:04] VITALS: TEMP 99.4
[2019-06-12 01:06] VITALS: O2SAT 98
[2019-06-12 01:07] VITALS: BP 112/75
--- NOTE | 2019-06-12 07:52 | RAD REPORT ---
EXAM DESCRIPTION: RAD - Shoulder Left 2 View - 06/11/2019 11:25 pm CLINICAL HISTORY: injury, left shoulder pain, decreased range of motion COMPARISON: Shoulder Left 2 View dated 08/10/2018 TECHNIQUE: Internal and external rotation views of the left shoulder were obtained. FINDINGS: Left humeral head has been dislocated medial and inferior to the glenoid, classic for ante rior dislocation. AC joint is normal in appearance. No fracture component seen. IMPRESSION: Left humeral head anterior dislocation.
--- NOTE | 2019-06-12 07:53 | RAD REPORT ---
EXAM DESCRIPTION: RAD - Shoulder Left 2 View - 06/12/2019 12:38 am CLINICAL HISTORY: post reduction, shoulder pain COMPARISON: Shoulder Left 2 View dated 06/11/2019; Shoulder 1 View dated 01/19/2019 TECHNIQUE: Internal and external rotation views of the left shoulder were obtained. FINDINGS: Left humeral head has been reduced to normal anatomic position. Large Hill-Sachs deformity present. AC joint is normal in appearance. IMPRESSION: Reduction of the left humeral head to anatomic position. Large Hill-Sachs deformity again noted.
== END 2019-06-12 00:45 | disposition home or self-care (01) ==
LOC: ER 21:31
PROC: 0RSKXZZ Reposition Left Shoulder Joint, External Approach (ICD-10-PCS; principal; 2019-06-11)
DX: S43.015A Anterior dislocation of left humerus, initial encounter (principal); X58.XXXA Exposure to other specified factors, initial encounter; Y93.67 Activity, basketball; G40.909 Epilepsy, unspecified, not intractable, without status epilepticus; Z79.899 Other long term (current) drug therapy
CPT/HCPCS: 73030 ×2; 96375; 96374; 99284; 23650; J3360; J3010; J2405

== ENCOUNTER 2019-10-01 13:48 | Emergency (ER) | payer BC ==
--- OUTSIDE RECORDS SUMMARY | 2019-10-01 13:50 | XMS REPORT | Continuity of Care Document ---
:1995 Author Organization [facility] t Address [address] [place] [address] Care Team Providers Name Role Phone Doctor Unassigned, Name Attending Clinician Unavailable Problems This patient has no known problems. Allergies, Adverse Reactions, Alerts This patient has no known allergies or adverse reactions. Medications This patient has no known medications. Procedures This patient has no known procedures. Encounters Start End Encounter Admission Attending Care Care Encounter Source Date/Time Date/Time Type Type Clinicians Facility Department ID 2018-09-02 2018-09-02 Orders Doctor DUSTY [id number] 00:00:00 00:00:00 Only UnassignedEMILY [id number] [place] [facility] [id number] Results This patient has no known results.
--- NOTE | 2019-10-01 14:27 | ER ---
Nurse's Notes [facility] Name: Kolby Cotton Jr Age: 24 yrs Sex: Male : 1995 Arrival Date: 10/01/2019 Time: 13:50 Bed 4 Private MD: Diagnosis: Recurrent dislocation, left shoulder Presentation: 09/30 13:54 Chief complaint: Left arm dislocated while playing with dog. Hx of multiple arm hb dislocations. Coronavirus screen: At this time, the client does not indicate any symptoms associated with coronavirus-19. Ebola Screen: No symptoms or risks identified at this time. Initial Sepsis Screen: Does the patient meet any 2 criteria? No. Patient's initial sepsis screen is negative. Does the patient have a suspected source of infection? No. Patient's initial sepsis screen is negative. Risk Assessment: Do you want to hurt yourself or someone else? Patient reports no desire to harm self or others. Onset of symptoms was October 01, 2019. 13:54 Method Of Arrival: Ambulatory hb 13:54 Acuity: ALIS 2 hb Triage Assessment: 14:00 General: Appears in no apparent distress. Behavior is calm, cooperative, appropriate vc for age. Pain: Complains of pain in left shoulder and anterior aspect of left shoulder Pain does not radiate. Quality of pain is described as sharp. Historical: - Allergies: 13:57 No Known Allergies; hb - Home Meds: 13:57 Keppra 500 mg Oral tab 1 tab nightly [Active]; hb - PMHx: 13:57 Seizures; hb - PSHx: 13:57 bilateral shoulder surgery; congenital surgery for abdominal problem; hb - Immunization history:: Adult Immunizations up to date. - Social history:: Smoking status: Patient denies any tobacco usage or history of. Screenin:00 Abuse screen: Denies threats or abuse. Nutritional screening: No deficits noted. vc Tuberculosis screening: No symptoms or risk factors identified. Fall Risk None identified. Assessment: 14:00 General: Appears in no apparent distress. uncomfortable, Behavior is calm, cooperative, vc appropriate for age. Pain: Complains of pain in anterior aspect of left shoulder Pain does not radiate. Pain currently is 8 out of 10 on a pain scale. Neuro: Level of Consciousness is awake, alert, obeys commands, Oriented to person, place, time, situation, Appropriate for age. Cardiovascular: Capillary refill < 3 seconds Patient's skin is warm and dry. Respiratory: Airway is patent Respiratory effort is even, unlabored, Respiratory pattern is regular, symmetrical. GI: No signs and/or symptoms were reported involving the gastrointestinal system. : No signs and/or symptoms were reported regarding the genitourinary system. Musculoskeletal: Range of motion: limited in left shoulder. Vital Signs: 13:54 BP 140 / 87; Pulse 74; Resp 16; Temp 97.8; Pulse Ox 98% on R/A; Weight 59.87 kg; Height hb 5 ft. 3 in. (160.02 cm); Pain 9/10; 13:54 Body Mass Index 23.38 (59.87 kg, 160.02 cm) hb ED Course: 13:50 Patient arrived in ED. mr 13:56 Triage completed. hb 13:57 Arm band placed on. hb 14:00 Pradeep Maddox MD is Attending Physician. clint 14:00 Newton Harris PA is PHCP. jr 14:00 Pradeep Maddox MD is Attending Physician. jr8 14:00 Patient has correct armband on for positive identification. Bed in low position. Pulse vc ox on. NIBP on. 14:26 Kt Haywood MD is Referral Physician. jr 14:28 Priscila Jenkins RN is Primary Nurse. vc 14:35 No provider procedures requiring assistance completed. Patient did not have IV access vc during this emergency room visit. 15:00 Shoulder Left (2 View) XRAY In Process Unspecified. EDMS Administered Medications: No medications were administered Outcome: 14:26 Discharge ordered by . jrSheyla 14:35 Discharged to home ambulatory. vc 14:35 Condition: good 14:35 Discharge instructions given to patient, Instructed on discharge instructions, follow up and referral plans. Demonstrated understanding of instructions, follow-up care. 14:36 Patient left the ED. vc Signatures: Dispatcher [employer] EDMS Pradeep Maddox MD MD cha Rivera, Mary mr Newton Harris PA PA jr8 Sallie Damon, SHAWNA RN Priscila Jenkins RN RN vc
--- NOTE | 2019-10-01 14:27 | EDPHYS ---
Physician Documentation [facility] Name: Kolby Cotton Jr Age: 24 yrs Sex: Male : 1995 Arrival Date: 10/01/2019 Time: 13:50 Bed 4 Private MD: ED Physician Pradeep Maddox HPI: 09/30 14:21 This 24 yrs old Black Male presents to ER via Ambulatory with complaints of Arm Problem.jr8 14:21 The patient or guardian complains of decreased range of motion, deformity, pain. The jr8 complaints affect the anterior aspect of left shoulder. Context: The problem was sustained at home, resulted from playing with dog. Onset: The symptoms/episode began/occurred acutely, today. Treatment prior to arrival includes: no previous treatment. Modifying factors: The symptoms are alleviated by nothing. the symptoms are aggravated by movement. Associated signs and symptoms: The patient has no apparent associated signs or symptoms. Severity of symptoms: At their worst the symptoms were moderate, in the emergency department the symptoms are unchanged. The patient has experienced similar episodes in the past, several times. The patient has not recently seen a physician. History of shoulder dislocations. Stated that he was playing with dog and felt it dislocate again . Historical: - Allergies: 13:57 No Known Allergies; hb - Home Meds: 13:57 Keppra 500 mg Oral tab 1 tab nightly [Active]; hb - PMHx: 13:57 Seizures; hb - PSHx: 13:57 bilateral shoulder surgery; congenital surgery for abdominal problem; hb - Immunization history:: Adult Immunizations up to date. - Social history:: Smoking status: Patient denies any tobacco usage or history of. ROS: 14:21 Eyes: Negative for injury, pain, redness, and discharge, ENT: Negative for injury, jr8 pain, and discharge, Neck: Negative for injury, pain, and swelling, Cardiovascular: Negative for chest pain, palpitations, and edema, Respiratory: Negative for shortness of breath, cough, wheezing, and pleuritic chest pain, Abdomen/GI: Negative for abdominal pain, nausea, vomiting, diarrhea, and constipation, Back: Negative for injury and pain, Skin: Negative for injury, rash, and discoloration, Neuro: Negative for headache, weakness, numbness, tingling, and seizure. 14:21 MS/extremity: Positive for decreased range of motion, deformity, pain, of the left arm. Exam: 14:21 Constitutional: This is a well developed, well nourished patient who is awake, alert, jr8 and in no acute distress. Cardiovascular: Regular rate and rhythm with a normal S1 and S2. No gallops, murmurs, or rubs. Normal PMI, no JVD. No pulse deficits. Respiratory: Lungs have equal breath sounds bilaterally, clear to auscultation and percussion. No rales, rhonchi or wheezes noted. No increased work of breathing, no retractions or nasal flaring. Skin: Warm, dry with normal turgor. Normal color with no rashes, no lesions, and no evidence of cellulitis. Neuro: Awake and alert, GCS 15, oriented to person, place, time, and situation. Cranial nerves II-XII grossly intact. Motor strength 5/5 in all extremities. Sensory grossly intact. Cerebellar exam normal. Normal gait. 14:21 Musculoskeletal/extremity: Extremities: grossly normal except: noted in the left shoulder: Patient has step off to lateral aspect of shoulder with anterior fullness. No external trauma noted. Decreased ROM present. Normal sensation with 2+ pulses radially bilaterally. Able to move fingers and wrist without problem . Vital Signs: 13:54 BP 140 / 87; Pulse 74; Resp 16; Temp 97.8; Pulse Ox 98% on R/A; Weight 59.87 kg; Height hb 5 ft. 3 in. (160.02 cm); Pain 9/10; 13:54 Body Mass Index 23.38 (59.87 kg, 160.02 cm) Procedures: 14:21 Splinting: Splint applied to left arm using sling, applied by nurse. post reduction jr8 film - reveals normal alignment, Examined by me, post splint application: neurovascular intact, 2+ distal pulses palpable, brisk capillary refill noted, Patient tolerated well. Reduction: of the left shoulder, using traction, manipulation, Immobilized with sling, Patient tolerated well. Post reduction film - reveals normal alignment. MDM: 14:00 Patient medically screened. [facility] 14:25 Data reviewed: vital signs, nurses notes, radiologic studies, plain films. Data jr8 interpreted: Pulse oximetry: on room air is 98 %. Interpretation: normal. Counseling: I had a detailed discussion with the patient and/or guardian regarding: the historical points, exam findings, and any diagnostic results supporting the discharge/admit diagnosis, radiology results, the need for outpatient follow up, a orthopedic surgeon, to return to the emergency department if symptoms worsen or persist or if there are any questions or concerns that arise at home. 09/30 14:12 Order name: Shoulder Left (2 View) XRAY hb 09/30 14:12 Order name: Sling; Complete Time: 14:29 jr8 Administered Medications: No medications were administered Disposition: 16:14 Co-signature as Attending Physician, Pradeep Maddox MD I agree with the assessment and clint plan of care. Disposition: 10/01/19 14:26 Discharged to Home. Impression: Recurrent dislocation, left shoulder. - Condition is Stable. - Discharge Instructions: Shoulder Dislocation. - Medication Reconciliation Form, Thank You Letter, Antibiotic Education, Prescription Opioid Use form. - Follow up: Kt Haywood MD; When: 5 - 6 days; Reason: Recheck today's complaints, Continuance of care, Re-evaluation by your physician. - Problem is new. - Symptoms have improved. Signatures: Dispatcher [employer] EDTN Pradeep Maddox MD MD cha Roszak, Josh, PA PA jr8 Sallie Damon, SHAWNA RN Priscila Shrestha RN RN vc Corrections: (The following items were deleted from the chart) 14:36 14:26 10/01/2019 14:26 Discharged to Home. Impression: Recurrent dislocation, left vc shoulder. Condition is Stable. Forms are Medication Reconciliation Form, Thank You Letter, Antibiotic Education, Prescription Opioid Use. Follow up: Kt Haywood; When: 5 - 6 days; Reason: Recheck today's complaints, Continuance of care, Re-evaluation by your physician. Problem is new. Symptoms have improved. jr8
[2019-10-01 14:42] VITALS: BP 140/87; TEMP 97.8; O2SAT 98
--- NOTE | 2019-10-01 15:24 | RAD REPORT ---
EXAM DESCRIPTION: RAD - Shoulder Left 2 View - 10/01/2019 3:00 pm CLINICAL HISTORY: post reduction COMPARISON: Shoulder Left 2 View dated 06/11/2019 TECHNIQUE: Internal and external rotation views of the left shoulder were obtained. FINDINGS: Two views were obtained labeled post reduction. Humeral head appears normally positioned r elative to the bony glenoid and relative to the acromion. No AC joint abnormality. A large Hill-Sachs deformity is seen in the humeral head. No abnormal soft tissue calcifications. IMPRESSION: Post reduction labeled examination shows normal positioning of the humeral head.
== END 2019-10-01 14:36 | disposition home or self-care (01) ==
LOC: ER 13:48
PROC: 0RSKXZZ Reposition Left Shoulder Joint, External Approach (ICD-10-PCS; principal; 2019-10-01)
DX: M24.412 Recurrent dislocation, left shoulder (principal); G40.909 Epilepsy, unspecified, not intractable, without status epilepticus; X58.XXXA Exposure to other specified factors, initial encounter; Y93.89 Activity, other specified; Y92.9 Unspecified place or not applicable
CPT/HCPCS: 99283

== ENCOUNTER 2020-01-26 08:25 | Emergency (ER) | payer BC ==
--- OUTSIDE RECORDS SUMMARY | 2020-01-26 08:52 | XMS REPORT | Continuity of Care Document ---
:[address] [facility] t Address [address] [place] [address] Care Team Providers Name Role Phone Doctor [...] ID 2018-09-02 2018-09-02 Orders Doctor DUSTY [id number] 00:00:00 00:00:00 Only UnassignedEMILY [id number] [place] [facility] [id number] Results This patient has no known results.
--- NOTE | 2020-01-26 11:27 | ER ---
Nurse's Notes [facility] Name: Kolby Cotton Jr Age: 24 yrs Sex: Male : 1995 Arrival Date: 01/26/2020 Time: 08:25 Bed 6 Private MD: Diagnosis: Recurrent dislocation, left shoulder Presentation: 01/25 08:35 Chief complaint: Patient states: L shoulder pain that began 1 hour ago after using the ss "pull bar" at the gym. Pt believes his shoulder is dislocated as this has happened multiple times before. Coronavirus screen: Client denies travel out of the [place] in the last 14 days. Ebola Screen: Patient denies exposure to infectious person. Patient denies travel to an Ebola-affected area in the 21 days before illness onset. Initial Sepsis Screen: Does the patient meet any 2 criteria? No. Patient's initial sepsis screen is negative. Does the patient have a suspected source of infection? No. Patient's initial sepsis screen is negative. Risk Assessment: Do you want to hurt yourself or someone else? Patient reports no desire to harm self or others. Onset of symptoms was January 26, 2020. 08:35 Method Of Arrival: Ambulatory ss 08:35 Acuity: ALIS 4 ss Triage Assessment: 08:37 General: Appears in no apparent distress. uncomfortable, Behavior is calm, cooperative, bp appropriate for age. Pain: Complains of pain in anterior aspect of left shoulder. EENT: No deficits noted. Neuro: No deficits noted. Cardiovascular: No deficits noted. Respiratory: No deficits noted. GI: No signs and/or symptoms were reported involving the gastrointestinal system. : No signs and/or symptoms were reported regarding the genitourinary system. Derm: No deficits noted. Musculoskeletal: Circulation, motion, and sensation intact. Range of motion: Bony deformity noted of anterior aspect of left shoulder. Injury Description: Deformity sustained to anterior aspect of left shoulder. Historical: - Allergies: 08:39 No Known Allergies; ss - Home Meds: 08:39 Keppra 500 mg Oral tab 1 tab nightly [Active]; ss - PMHx: 08:39 Seizures; ss - PSHx: 08:39 bilateral shoulder surgery; congenital surgery for abdominal problem; ss - Immunization history:: Adult Immunizations up to date. - Social history:: Smoking status: Patient denies any tobacco usage or history of. Patient/guardian denies using alcohol, street drugs, The patient lives with family. - Family history:: not pertinent. Screenin:39 Abuse screen: Denies threats or abuse. Denies injuries from another. Nutritional bp screening: No deficits noted. Tuberculosis screening: No symptoms or risk factors identified. Fall Risk None identified. Assessment: 08:39 General: SEE TRIAGE NOTE. bp 09:00 Reassessment: Patient appears in no apparent distress at this time. Patient and/or bp family updated on plan of care and expected duration. Pain level reassessed. Patient is alert, oriented x 3, equal unlabored respirations, skin warm/dry/pink. WEIGHTS PLACED FOR PASSIVE TRACTION. 10:00 Reassessment: CLOSED REDUCTION COMPLETED, POST-REDUCTION XRAY PENDING. SLING IN PLACE bp FOR IMMOBILIZATION. PT REMAINS NEUROVASCULAR INTACT. 11:00 Reassessment: Patient appears in no apparent distress at this time. Patient and/or bp family updated on plan of care and expected duration. Pain level reassessed. Patient is alert, oriented x 3, equal unlabored respirations, skin warm/dry/pink. 11:32 Reassessment: PT D/C HOME AMBULATORY, DX WITH RECURRENT LEFT SHOULDER DISLOCATION. bp Vital Signs: 08:35 Pulse 110; Resp 16; Pulse Ox 100% on R/A; Weight 63.5 kg; Height 5 ft. 3 in. (160.02 ss cm); Pain 8/10; 08:45 BP 128 / 87; Temp 98.5(TE); ss 10:30 BP 121 / 75; Pulse 85; Resp 16; Pulse Ox 100% ; bp 11:32 BP 113 / 70; Pulse 64; Resp 16; Temp 98; Pulse Ox 100% ; bp 08:35 Body Mass Index 24.80 (63.50 kg, 160.02 cm) ss ED Course: 08:25 Patient arrived in ED. ds1 08:28 Chaz Allen, SHAWNA is Primary Nurse. bp 08:37 Triage completed. ss 08:38 Tosin Childs MD is Attending Physician. ma2 08:38 Arm band placed on. bp 08:39 Patient has correct armband on for positive identification. Bed in low position. Call bp light in reach. Side rails up X2. 10:00 Assist provider with reduction of left shoulder using manipulation, Set up for bp procedure. Performed by Tosin Childs MD Immobilized with sling, Patient tolerated well. 10:38 Shoulder Left (2 View) XRAY In Process Unspecified. EDMS 11:33 Patient did not have IV access during this emergency room visit. bp Administered Medications: No medications were administered Outcome: 11:27 Discharge ordered by . ma2 11:33 Discharged to home ambulatory. bp 11:33 Condition: stable 11:33 Discharge instructions given to patient, Instructed on discharge instructions, follow up and referral plans. Demonstrated understanding of instructions, follow-up care. 11:38 Patient left the ED. bp Signatures: Dispatcher [employer] EDUT Julieta Harvey ds1 Anna Cai, Chaz Isaac RN, RN RN bp Tosin Childs MD MD ma2
--- NOTE | 2020-01-26 11:27 | EDPHYS ---
Physician Documentation [facility] Name: Kolby Cotton Jr Age: 24 yrs Sex: Male : 1995 Arrival Date: 01/26/2020 Time: 08:25 Bed 6 Private MD: ED Physician Tosin Childs HPI: 01/25 09:06 This 24 yrs old Black Male presents to ER via Ambulatory with complaints of Shoulder ma2 Injury. 09:06 The patient or guardian complains of decreased range of motion, deformity. Onset: The ma2 symptoms/episode began/occurred suddenly, 1 hour(s) ago. Associated signs and symptoms: Pertinent negatives: diaphoresis, neck pain, shortness of breath. Severity of symptoms: At their worst the symptoms were moderate, in the emergency department the symptoms are unchanged. The patient has experienced similar episodes in the past, multiple hx of shoulder anterior dislocation . Historical: - Allergies: 08:39 No Known Allergies; ss - Home Meds: 08:39 Keppra 500 mg Oral tab 1 tab nightly [Active]; ss - PMHx: 08:39 Seizures; ss - PSHx: 08:39 bilateral shoulder surgery; congenital surgery for abdominal problem; ss - Immunization history:: Adult Immunizations up to date. - Social history:: Smoking status: Patient denies any tobacco usage or history of. Patient/guardian denies using alcohol, street drugs, The patient lives with family. - Family history:: not pertinent. ROS: 09:06 Constitutional: Negative for fever, chills, and weight loss, Cardiovascular: Negative ma2 for chest pain, palpitations, and edema, Respiratory: Negative for shortness of breath, cough, wheezing, and pleuritic chest pain, Abdomen/GI: Negative for abdominal pain, nausea, diarrhea, and constipation. 09:06 Constitutional: Positive for Exam: 09:06 Constitutional: This is a well developed, well nourished patient who is awake, alert, ma2 and in no acute distress. Head/Face: Normocephalic, atraumatic. Chest/axilla: Normal chest wall appearance and motion. Nontender with no deformity. No lesions are appreciated. Cardiovascular: Regular rate and rhythm with a normal S1 and S2. No gallops, murmurs, or rubs. Normal PMI, no JVD. No pulse deficits. Respiratory: Lungs have equal breath sounds bilaterally, clear to auscultation and percussion. No rales, rhonchi or wheezes noted. No increased work of breathing, no retractions or nasal flaring. Abdomen/GI: Soft, non-tender, with normal bowel sounds. No distension or tympany. No guarding or rebound. No evidence of tenderness throughout. Skin: Warm, dry with normal turgor. Normal color with no rashes, no lesions, and no evidence of cellulitis. Neuro: Awake and alert, GCS 15, oriented to person, place, time, and situation. Cranial nerves II-XII grossly intact. Motor strength 5/5 in all extremities. Sensory grossly intact. Cerebellar exam normal. Normal gait. 09:06 Musculoskeletal/extremity: Extremities: left shoulder anterior dislocation , ROM: limited active range of motion, limited passive range of motion, Circulation is intact in all extremities. Sensation intact. Joints: Vital Signs: 08:35 Pulse 110; Resp 16; Pulse Ox 100% on R/A; Weight 63.5 kg; Height 5 ft. 3 in. (160.02 ss cm); Pain 8/10; 08:45 BP 128 / 87; Temp 98.5(TE); ss 10:30 BP 121 / 75; Pulse 85; Resp 16; Pulse Ox 100% ; bp 11:32 BP 113 / 70; Pulse 64; Resp 16; Temp 98; Pulse Ox 100% ; bp 08:35 Body Mass Index 24.80 (63.50 kg, 160.02 cm) ss Procedures: 10:29 Reduction: of the left shoulder, using traction, manipulation, Immobilized with sling, ma2 Patient tolerated well. Post reduction film - reveals normal alignment. MDM: 08:38 Patient medically screened. ma2 10:29 Differential diagnosis: Anterior dislocation without fracture, DJD, tendonitis. Data ma2 reviewed: vital signs, nurses notes. Counseling: I had a detailed discussion with the patient and/or guardian regarding: the historical points, exam findings, and any diagnostic results supporting the discharge/admit diagnosis, the presence of at least one elevated blood pressure reading (>120/80) during this emergency department visit, the need for outpatient follow up. Response to treatment: the patient's symptoms have markedly improved after treatment, post reduction neurvascular intact . 01/25 08:33 Order name: Shoulder Left (2 View) XRAY bp 01/25 10:14 Order name: Sling; Complete Time: 10:24 ma2 Administered Medications: No medications were administered Disposition: 01/26/20 11:27 Discharged to Home. Impression: Recurrent dislocation, left shoulder. - Condition is Stable. - Discharge Instructions: Shoulder Dislocation, [id number]. - Medication Reconciliation Form, Thank You Letter, Antibiotic Education, Prescription Opioid Use form. - Follow up: Private Physician; When: Tomorrow; Reason: Continuance of care. Signatures: Dispatcher [employer] EDRI Anna Cai RN RN Chaz Allen RN RN bp Alzahri, Mohammad, MD MD ma2 Corrections: (The following items were deleted from the chart) 11:38 11:27 01/26/2020 11:27 Discharged to Home. Impression: Recurrent dislocation, left bp shoulder. Condition is Stable. Forms are Medication Reconciliation Form, Thank You Letter, Antibiotic Education, Prescription Opioid Use. Follow up: Private Physician; When: Tomorrow; Reason: Continuance of care. ma2
[2020-01-26 11:53] VITALS: O2SAT 100
[2020-01-26 11:58] VITALS: BP 113/70; TEMP 98
--- NOTE | 2020-01-26 12:02 | RAD REPORT ---
EXAM DESCRIPTION: RAD - Shoulder Left 2 View - 01/26/2020 10:38 am CLINICAL HISTORY: Left shoulder pain FINDINGS: No fracture or dislocation is seen. Left humeral head is high riding
== END 2020-01-26 11:38 | disposition home or self-care (01) ==
LOC: ER 08:25
PROC: 0RSKXZZ Reposition Left Shoulder Joint, External Approach (ICD-10-PCS; principal; 2020-01-26)
DX: M24.412 Recurrent dislocation, left shoulder (principal); G40.909 Epilepsy, unspecified, not intractable, without status epilepticus
CPT/HCPCS: 99284

== ENCOUNTER 2020-03-18 01:29 | Emergency (ER) | payer BC ==
--- OUTSIDE RECORDS SUMMARY | 2020-03-18 01:30 | XMS REPORT | Continuity of Care Document ---
:1995 Author Organization [facility] t Address [address] [place] [address] Care Team Providers Name Role Phone Doctor [...] ID 2018-09-02 2018-09-02 Orders Doctor DUSTY [id number] 00:00:00 00:00:00 Only UnassignedEMILY [id number] [place] [facility] [id number] Results This patient has no known results.
--- NOTE | 2020-03-18 03:36 | EDPHYS ---
Physician Documentation [facility] Name: Kolby Cotton Jr Age: 24 yrs Sex: Male : 1995 Arrival Date: 03/18/2020 Time: 01:29 Bed 19 Private MD: ED Physician José Miguel Adams HPI: 03/18 01:44 This 24 yrs old Black Male presents to ER via Ambulatory with complaints of Dislocated mh7 Shoulder. 01:44 The patient or guardian complains of decreased range of motion. left shoulder. Context: mh7 The problem was sustained at a bar or nightclub, resulted from Raised arm overhead. Onset: The symptoms/episode began/occurred just prior to arrival, today. Modifying factors: the symptoms are alleviated by nothing. The symptoms are aggravated by movement. Associated signs and symptoms: Pertinent negatives: abdominal pain, chest pain, diaphoresis, dyspnea, neck pain, shortness of breath, tingling. Severity of symptoms: At their worst the symptoms were moderate, earlier today, in the emergency department the symptoms are unchanged. Treatment prior to arrival includes: no previous treatment. The patient has experienced similar episodes in the past, multiple times. Historical: - Allergies: 01:42 No Known Allergies; lp1 - Home Meds: 01:42 Keppra 500 mg Oral tab 1 tab nightly [Active]; lp1 - PMHx: 01:42 Seizures; lp1 - PSHx: 01:42 None; lp1 - Immunization history:: Adult Immunizations up to date. - Social history:: Smoking status: Patient denies any tobacco usage or history of. ROS: 01:44 Constitutional: Negative for fever, chills, and weight loss, Eyes: Negative for injury, mh7 pain, redness, and discharge, ENT: Negative for injury, pain, and discharge, Neck: Negative for injury, pain, and swelling, Cardiovascular: Negative for chest pain, palpitations, and edema, Respiratory: Negative for shortness of breath, cough, wheezing, and pleuritic chest pain, Abdomen/GI: Negative for abdominal pain, nausea, vomiting, diarrhea, and constipation, Back: Negative for injury and pain, : Negative for injury, bleeding, discharge, and swelling, Skin: Negative for injury, rash, and discoloration, Neuro: Negative for headache, weakness, numbness, tingling, and seizure, Psych: Negative for depression, anxiety, suicide ideation, homicidal ideation, and hallucinations, Allergy/Immunology: Negative for hives, rash, and allergies, Endocrine: Negative for neck swelling, polydipsia, polyuria, polyphagia, and marked weight changes, Hematologic/Lymphatic: Negative for swollen nodes, abnormal bleeding, and unusual bruising. Exam: 01:44 Constitutional: This is a well developed, well nourished patient who is awake, alert, mh7 and in no acute distress. Head/Face: Normocephalic, atraumatic. Eyes: Pupils equal round and reactive to light, extra-ocular motions intact. Lids and lashes normal. Conjunctiva and sclera are non-icteric and not injected. Cornea within normal limits. Periorbital areas with no swelling, redness, or edema. Neck: Trachea midline, no thyromegaly or masses palpated, and no cervical lymphadenopathy. Supple, full range of motion without nuchal rigidity, or vertebral point tenderness. No Meningismus. Chest/axilla: Normal chest wall appearance and motion. Nontender with no deformity. No lesions are appreciated. Cardiovascular: Regular rate and rhythm with a normal S1 and S2. No gallops, murmurs, or rubs. Normal PMI, no JVD. No pulse deficits. Respiratory: Lungs have equal breath sounds bilaterally, clear to auscultation and percussion. No rales, rhonchi or wheezes noted. No increased work of breathing, no retractions or nasal flaring. Abdomen/GI: Soft, non-tender, with normal bowel sounds. No distension or tympany. No guarding or rebound. No evidence of tenderness throughout. Back: No spinal tenderness. No costovertebral tenderness. Full range of motion. Skin: Warm, dry with normal turgor. Normal color with no rashes, no lesions, and no evidence of cellulitis. Neuro: Awake and alert, GCS 15, oriented to person, place, time, and situation. Cranial nerves II-XII grossly intact. Motor strength 5/5 in all extremities. Sensory grossly intact. Cerebellar exam normal. Normal gait. Psych: Awake, alert, with orientation to person, place and time. Behavior, mood, and affect are within normal limits. 01:44 Musculoskeletal/extremity: Extremities: noted in the left shoulder: decreased ROM, ROM: limited active range of motion, in the left shoulder, limited passive range of motion, in the left shoulder, Circulation is intact in all extremities. Pulses: are normal with no appreciated deficits, Perfusion: the patient is normally perfused throughout, Perfusion: the extremity is normally perfused throughout, Sensation intact. Compartment Syndrome exam of affected extremity: is normal. no pain, no numbness, no tingling, no sensation deficit, no palor, no weak pulses, Joints: the left shoulder displays dislocation, limited range of motion, Weight bearing: able to fully bear weight, without difficulty, Tendon exam: specific tendon testing normal through active and passive range of motion Vital Signs: 01:39 Temp 97.9(TE); Weight 65.77 kg (R); Height 5 ft. 3 in. (160.02 cm); lp1 01:40 BP 153 / 57; Pulse 90; Resp 18; Temp 98; Pulse Ox 99% ; ea 03:25 BP 137 / 60; Pulse 80; Resp 18; Pulse Ox 98% ; ea 01:39 Body Mass Index 25.69 (65.77 kg, 160.02 cm) lp1 Procedures: 03:32 Reduction: of the left shoulder, using traction, manipulation, External rotation, mh7 Immobilized with sling, Patient tolerated well. Post reduction film - reveals normal alignment. MDM: 03:32 Differential diagnosis: Anterior dislocation without fracture, Posterior dislocation mh7 without fracture, tendonitis. Data reviewed: vital signs, nurses notes, old medical records, radiologic studies, plain films. Data interpreted: Pulse oximetry: on room air is 99 %. Interpretation: normal. Counseling: I had a detailed discussion with the patient and/or guardian regarding: the historical points, exam findings, and any diagnostic results supporting the discharge/admit diagnosis, the presence of at least one elevated blood pressure reading (>120/80) during this emergency department visit, radiology results, the need for outpatient follow up, a orthopedic surgeon, to return to the emergency department if symptoms worsen or persist or if there are any questions or concerns that arise at home. Response to treatment: the patient's symptoms have resolved after treatment, the patient's blood pressure is in an acceptable range, mental status has returned to baseline, the patient no longer shows bradycardia, the patient is not short of breath, the patient is not tachycardic, the patient's pain is gone, the patient's temperature has normalized. 03:35 Patient medically screened. [facility] 03/18 01:43 Order name: Shoulder Left (2 View) XRAY 7 03/18 02:25 Order name: Shoulder Left (2 View) XRAY 7 03/18 02:24 Order name: Sling; Complete Time: 02:46 mh7 Administered Medications: No medications were administered Disposition: 03/18/20 03:35 Discharged to Home. Impression: Recurrent Dislocation Left Shoulder. - Condition is Stable. - Discharge Instructions: Shoulder Dislocation, [id number]. - Medication Reconciliation Form, Thank You Letter, Antibiotic Education, Prescription Opioid Use form. - Follow up: Fermin Nair MD; When: 2 - 3 days; Reason: Worsening of condition, Recheck today's complaints. - Problem is an acute exacerbation. - Symptoms are resolved. Signatures: Dispatcher [employer] EDMS Faina Roth RN RN lp1 Janis Cardona RN RN ea Holmes, Maurice, MD MD [facility] Corrections: (The following items were deleted from the chart) 03:36 03:35 03/18/2020 03:35 Discharged to Home. Impression: Anterior Dislocation Left mh7 Shoulder. Condition is Stable. Forms are Medication Reconciliation Form, Thank You Letter, Antibiotic Education, Prescription Opioid Use. Follow up: Fermin Nair; When: 2 - 3 days; Reason: Worsening of condition, Recheck today's complaints. Problem is an acute exacerbation. Symptoms are resolved. [facility] 03:44 03:36 03/18/2020 03:35 Discharged to Home. Impression: Recurrent Dislocation Left ea Shoulder. Condition is Stable. Forms are Medication Reconciliation Form, Thank You Letter, Antibiotic Education, Prescription Opioid Use. Follow up: Fermin Nair; When: 2 - 3 days; Reason: Worsening of condition, Recheck today's complaints. Problem is an acute exacerbation. Symptoms are resolved. [facility]
--- NOTE | 2020-03-18 03:36 | ER ---
Nurse's Notes [facility] Name: Kolby Cotton Jr Age: 24 yrs Sex: Male : 1995 Arrival Date: 03/18/2020 Time: 01:29 Bed 19 Private MD: Diagnosis: Recurrent Dislocation Left Shoulder Presentation: 03/18 01:39 Chief complaint: Patient states: Reports at bar tonight and lifted arm up, reports lp1 feeling left shoulder dislocation; Hx of left shoulder dislocation. Coronavirus screen: Client denies travel out of the [place] in the last 14 days. At this time, the client does not indicate any symptoms associated with coronavirus-19. Ebola Screen: No symptoms or risks identified at this time. Initial Sepsis Screen: Does the patient meet any 2 criteria? No. Patient's initial sepsis screen is negative. Does the patient have a suspected source of infection? No. Patient's initial sepsis screen is negative. Risk Assessment: Do you want to hurt yourself or someone else? Patient reports no desire to harm self or others. Onset of symptoms was March 18, 2020 at 00:30. 01:39 Method Of Arrival: Ambulatory lp1 01:39 Acuity: ALIS 4 lp1 Historical: - Allergies: 01:42 No Known Allergies; lp1 - Home Meds: 01:42 Keppra 500 mg Oral tab 1 tab nightly [Active]; lp1 - PMHx: 01:42 Seizures; lp1 - PSHx: 01:42 None; lp1 - Immunization history:: Adult Immunizations up to date. - Social history:: Smoking status: Patient denies any tobacco usage or history of. Screenin:41 Abuse screen: Denies threats or abuse. Nutritional screening: No deficits noted. ea Tuberculosis screening: No symptoms or risk factors identified. Fall Risk None identified. 01:42 Abuse screen: Denies threats or abuse. Denies injuries from another. Nutritional lp1 screening: No deficits noted. Tuberculosis screening: No symptoms or risk factors identified. Fall Risk None identified. Assessment: 01:40 General: Appears in no apparent distress. Behavior is appropriate for age. Pain: ea Complains of pain in left arm. Neuro: Level of Consciousness is awake, alert, obeys commands, Oriented to person, place, time, situation. Respiratory: Airway is patent Respiratory effort is even, unlabored, Respiratory pattern is regular, symmetrical. Derm: Skin is pink, warm \T\ dry. 02:50 Reassessment: Patient and/or family updated on plan of care and expected duration. Pain ea level reassessed. Patient is alert, oriented x 3, equal unlabored respirations, skin warm/dry/pink. 03:42 Reassessment: Patient and/or family updated on plan of care and expected duration. Pain ea level reassessed. Patient is alert, oriented x 3, equal unlabored respirations, skin warm/dry/pink. Discharge instruction given to patient, verbalized the understanding of instruction. Pt left ED ambulatory tolerating well. Vital Signs: 01:39 Temp 97.9(TE); Weight 65.77 kg (R); Height 5 ft. 3 in. (160.02 cm); lp1 01:40 BP 153 / 57; Pulse 90; Resp 18; Temp 98; Pulse Ox 99% ; ea 03:25 BP 137 / 60; Pulse 80; Resp 18; Pulse Ox 98% ; ea 01:39 Body Mass Index 25.69 (65.77 kg, 160.02 cm) lp1 ED Course: 01:29 Patient arrived in ED. cl3 01:33 José Miguel Adams MD is Attending Physician. mh7 01:39 Janis Cardona, SHAWNA is Primary Nurse. ea 01:42 Triage completed. lp1 01:42 Arm band placed on right wrist. lp1 01:42 Patient has correct armband on for positive identification. lp1 02:19 Shoulder Left (2 View) XRAY In Process Unspecified. EDMS 02:28 Assist provider with reduction of right shoulder using manipulation, Set up for ea procedure. Performed by José Miguel Adams MD Immobilized with shoulder immobilizer Patient tolerated well. 02:59 Shoulder Left (2 View) XRAY In Process Unspecified. EDMS 03:34 Fermin Nair MD is Referral Physician. mh7 03:43 Patient did not have IV access during this emergency room visit. ea Administered Medications: No medications were administered Outcome: 03:35 Discharge ordered by . mh7 03:43 Discharged to home ambulatory. ea 03:43 Condition: stable 03:43 Discharge instructions given to patient, Instructed on discharge instructions, follow up and referral plans. Demonstrated understanding of instructions, follow-up care. 03:44 Patient left the ED. ea Signatures: Dispatcher [employer] Faina Jeffers RN RN lp1 Janis Cardona RN RN ea Lewis, Charde cl3 José Miguel Adams MD MD mh7
[2020-03-18 03:51] VITALS: TEMP 98
[2020-03-18 03:52] VITALS: BP 137/60; O2SAT 98
--- NOTE | 2020-03-18 21:54 | RAD REPORT ---
EXAM DESCRIPTION: XR Left Shoulder Complete, 2 or More Views CLINICAL HISTORY: The patient is 24 years old and is Male; Dislocation TECHNIQUE: Two or more views of the left shoulder. COMPARISON: No relevant prior studies available. FINDINGS: BONES/JOINTS: Anterior shoulder dislocation. No acute fracture. SOFT TISSUES: Unremarkable. LUNGS: Visualized lung is clear. IMPRESSION: Anterior shoulder dislocation. Electronically signed by: Shantelle Quarles MD 03/18/2020 3:28 AM COMPUTATOR Due to temporary technical issues with the PACS/Fluency reporting system, reports are being signed by the in house radiologists without review as a courtesy to insure prompt reporting. The interpreting radiologist is fully responsible for the content of the report.
--- NOTE | 2020-03-20 13:35 | RAD REPORT ---
EXAM DESCRIPTION: XR Left Shoulder Complete, two or More Views CLINICAL HISTORY: The patient is 24 years old and is Male; Dislocation TECHNIQUE: Two or more views of the left shoulder. COMPARISON: No relevant prior studies available. FINDINGS: BONES/JOINTS: Anterior shoulder dislocation. No acute fracture. SOFT TISSUES: Unremarkable. LUNGS: Visualized lung is clear. IMPRESSION: Anterior shoulder dislocation. Electronically signed by: Shantelle Quarles MD 03/18/2020 3:28 AM [employer] Due to temporary technical issues with the PACS/Fluency reporting system, reports are being signed by the in house radiologists without review as a courtesy to insure prompt reporting. The interpreting radiologist is fully responsible for the content of the report.
== END 2020-03-18 03:44 | disposition home or self-care (01) ==
LOC: ER 01:29
PROC: 0RSKXZZ Reposition Left Shoulder Joint, External Approach (ICD-10-PCS; principal; 2020-03-18)
DX: M24.412 Recurrent dislocation, left shoulder (principal); G40.909 Epilepsy, unspecified, not intractable, without status epilepticus
CPT/HCPCS: 99284